=== PATIENT | female | born 2000 | race Caucasian/White ===

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

== ENCOUNTER 2022-01-25 09:13 | Emergency (ER) | payer OTHER ==
[~2022-01-25] VITALS: Ht 170.2 cm; Wt 81.1 kg
--- OUTSIDE RECORDS SUMMARY | 2022-01-25 09:20 | XMS ---
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 Care Guidelines exist for the following facilities: [facility] ( 03/25/2020 ) Liliam [facility] (12 MO.) [facility] T[facility] 3 NOTE: Visits indicate total known visits. ED/UCC VISIT TRACKING (12 MO.) 01/25/2022 09:[address] [facility] [address] [facility] [place] TYPE: Emergency COMPLAINT: - COLD SYMPTOMS [facility] DIAGNOSES: - cough fever chills - Flu Like Symptoms - Influenza due to other identified influenza virus with other respiratory manifestations 08[facility]04[facility]2021 21[facility] DIAGNOSES: - right wrist bump - left wrist bump - Hand Swelling - Ganglion, unspecified site INPATIENT VISIT TRACKING (12 MO.) No inpatient visits to display in this time frame [id number]
[2022-01-25] MEDS ORDERED: NUVARING VAGIN1 EACH VAGINAL (09:57)
[2022-01-25] MEDS ORDERED: CEPHALEXIN500 M1 PO (13:11)
[2022-01-25] MEDS ORDERED: ONDANSETRON ODT4 MG PO (13:11)
== END 2022-01-25 13:25 | disposition home or self-care (01) ==
LOC: ED 09:13
DX: J10.1 Influenza due to other identified influenza virus with other respiratory manifestations (principal); N39.0 Urinary tract infection, site not specified; K21.9 Gastro-esophageal reflux disease without esophagitis; Z20.822 Contact with and (suspected) exposure to COVID-19
CPT/HCPCS: 36415; 80053; 81001; 84703; 85025; 87088; 87502; 96361; 96374; 96375; 99284-25; C9803; J0696; J1885; J7030; U0003